=== PATIENT | female | born 1945 | race Caucasian/White ===

== ENCOUNTER 2021-07-13 08:28 | Observation (INO) ==
[~2021-07-13 08:28] MED LIST: Buffered Lidocaine 1% SYRIN 1 ml INTRADERM ONE; Dexamethasone IV 4 MG/ML VIAL 1 ml VIAL ONE; EPHEDrine (Pressors) 50 MG/ML VIAL ONE; Lactated Ringers 1000 ml BAG 1,000 ML IV SCH; Lidocaine 2% PF 5 ML VIAL ONE; Midazolam 5 mg/5 ml VIAL 1 mg/ml 5 ml VIAL (5 mg) ONE; Ondansetron 4 mg VIAL 2 MG/ML 2 ml VIAL ONE; Phenylephrine 40 mcg/mL 10mL (400mcg) SYRINGE ONE; Propofol 10 MG/ML 20 ML BTL ONE; Sterile Water for Inj 10 ML ONE; fentaNYL 100 mcg/2 ml 50 MCG/ML VIAL ONE
[2021-07-13] MEDS ORDERED: ceFAZolin 2 GM in NS PREMIX 2 GM/100 ML BAG IVPB ONE (08:53)
[2021-07-13] MEDS ORDERED: fentaNYL 100 mcg/2 ml 50 MCG/ML VIAL IV PRN ×2 (08:58→10:18)
[2021-07-13] MEDS ORDERED: Ondansetron 4 mg VIAL 2 MG/ML 2 ml VIAL IV PRN ×3 (08:58→11:43)
[2021-07-13] MEDS ORDERED: Naloxone 0.4 mg VIAL 0.4 mg/ml 1 ml VIAL IV PRN ×2 (08:58→10:18)
[2021-07-13] MEDS ORDERED: DiMENhydriNATE IV 50 mg/ml 1 ml VIAL IV PUSH PRN ×2 (08:58→10:18)
[2021-07-13] MEDS ORDERED: Ropivacaine 5 MG/ML 20 ML VIAL 0.5% (100 MG) ONE (09:28)
[2021-07-13 09:45] LABS: INR 1.1 (0.86-1.15)
[2021-07-13] MEDS ORDERED: diPHENhydraMINE IV 50 MG/ML 1 ml VIAL (BENADRYL) IV PRN ×2 (10:18→11:43)
[2021-07-13] MEDS ORDERED: Ondansetron ODT 4 mg TAB 4 MG TAB PO PRN (11:43)
[2021-07-13] MEDS ORDERED: diPHENhydraMINE 25 mg TAB PO PRN (11:43)
[2021-07-13] MEDS ORDERED: Lactulose 30 ml UDC PO PRN (11:43)
[2021-07-13] MEDS ORDERED: Morphine 2 MG/ML SYRINGE IV PRN (11:43)
[2021-07-13] MEDS ORDERED: Magnesium Hydroxide LIQ 30 ML UDC PO PRN (11:43)
[2021-07-13] MEDS ORDERED: Sevoflurane BOTTLE ONE (12:07)
[2021-07-13] MEDS ORDERED: Desflurane 240 ML INH ONE (12:07)
[2021-07-13] MEDS: Lactated Ringers 1000 ml BAG 1,000 ML IV SCH (14:38)
[2021-07-13] MEDS ORDERED: Dextrose 50% Syringe 50 ml 25 GM/50 ML SYRINGE IV PUSH PRN (15:25)
[2021-07-13] MEDS: ceFAZolin 1 GM ADVAN 1 GM in NS 0.9% 50 ML 50 ML IVPB SCH (20:11)
[2021-07-13] MEDS ORDERED: CMCS: Simvastatin 20 mg TAB (NF) PO SCH (21:00)
[2021-07-13] MEDS: Magnesium Hydroxide LIQ 30 ML UDC PO SCH (21:59)
[2021-07-14] MEDS: Lactated Ringers 1000 ml BAG 1,000 ML IV SCH (01:48)
[2021-07-14] MEDS: ceFAZolin 1 GM ADVAN 1 GM in NS 0.9% 50 ML 50 ML IVPB SCH ×2 (05:38→12:28)
[2021-07-14] MEDS ORDERED: Buffered Lidocaine 1% SYRIN 1 ml INTRADERM ONE (06:00)
[2021-07-14] MEDS ORDERED: Lactated Ringers 1000 ml BAG 1,000 ML IV SCH (06:00)
[2021-07-14 06:30] LABS: Hematocrit 32 % (35-47); Hemoglobin 11.1 g/dL (12.0-16.0); Mean Platelet Volume 6.9 fL (7.4-10.4); Platelet Count 191 10^3/uL (150-450)
[2021-07-14 06:43] LABS: Calcium 8.2 mg/dL (8.6-10.3); eGFR CKD-EPI 89.6 (>60)
[2021-07-14] MEDS: Magnesium Hydroxide LIQ 30 ML UDC PO SCH (08:04)
[2021-07-14] MEDS ORDERED: Vitamin THERAPEUTIC TAB PO SCH (09:00)
[2021-07-14] MEDS ORDERED: Aspirin EC 81 mg TAB.EC (enteric coated) PO SCH (09:00)
[2021-07-14 11:46] VITALS: BP 114/75
[2021-07-16] MEDS ORDERED: Scopolamine PATCH Remove NOTE PATCH OFF SCH (17:59)
== END 2021-07-14 14:08 | disposition home or self-care (01) ==
LOC: SSU 08:28 → OR 08:28
PROVIDERS: ADMIT Orthopaedic Surgery Adult Reconstructive Orthopaedic Surgery; ATTEND Orthopaedic Surgery Adult Reconstructive Orthopaedic Surgery